=== PATIENT | female | born 1990 | race Hispanic/Latino ===

== ENCOUNTER 2017-10-28 20:30 | Emergency (ER) | payer OTHER ==
[2017-10-28 21:35] LABS: BASOPHILS % (AUTO) 1.2 % (0.0-5.0); EOSINOPHILS % (AUTO) 0.7 % (0.0-8.0); HEMATOCRIT 40.5 % (36-48); LYMPHOCYTES % (AUTO) 13.3 % (21.0-51.0); MEAN CORPUSCULAR HEMOGLOBIN 26.1 pg (27.0-33.0); MEAN CORPUSCULAR HGB CONC 33.7 g/dL (32.0-36.0); MEAN CORPUSCULAR VOLUME 77.4 fL (79-99); MONOCYTES % (AUTO) 5.7 % (3.0-13.0); NEUTROPHILS % (AUTO) 79.1 % (40.0-77.0); PLATELET COUNT (AUTO) 263 K/uL (130-400); RED BLOOD CELL COUNT(AUTO) 5.23 MIL/uL (4.00-5.50); RED CELL DISTRIBUTION WIDTH 14.8 % (11.0-15.5); WHITE BLOOD COUNT (AUTO) 9.4 K/uL (4.8-10.8)
[2017-10-28 21:53] LABS: CREATININE 0.7 mg/dL (0.5-1.5); POTASSIUM 3.4 mmol/L (3.5-5.1)
[2017-10-28 21:58] LABS: ALBUMIN 3.8 g/dL (3.5-5.0); BILIRUBIN,TOTAL 0.8 mg/dL (0.2-1.0); RAPID GROUP A STREP NEGATIVE (NEGATIVE); TOTAL PROTEIN, SERUM 8.3 g/dL (6.0-8.3)
[2017-10-28] MEDS ORDERED: POTASSIUM CHLORIDE 10% ELIXIR 20 MEQ/15 ML UDCUP ONE (22:12)
[2017-10-28] MEDS ORDERED: HYDROCODONE/ACETAMINOPHEN 10/325 MG TAB ONE (22:17)
[2017-10-28] MEDS ORDERED: CEFTRIAXONE SODIUM 1 GM ONE (22:22)
== END 2017-10-28 23:11 | disposition home or self-care (01) ==
LOC: EDH 20:30
DX: H65.01 Acute serous otitis media, right ear (principal); J02.9 Acute pharyngitis, unspecified; E16.2 Hypoglycemia, unspecified; C22.8 Malignant neoplasm of liver, primary, unspecified as to type; C25.9 Malignant neoplasm of pancreas, unspecified; Z98.890 Other specified postprocedural states
CPT/HCPCS: 36415; 80053; 85025; 87040; 87804 ×2; 87880; 96374; 99284; J0696

== ENCOUNTER 2019-01-30 12:41 | Day surgery (SDC) | payer OTHER ==
[2019-01-30] VITALS (13 sets, daily range): BP systolic 108–122; BP diastolic 61–77
[2019-01-30 13:21] LABS: BASOPHILS % (AUTO) 1.8 % (0.0-5.0); EOSINOPHILS % (AUTO) 1.3 % (0.0-8.0); HEMATOCRIT 25.6 % (36-48); LYMPHOCYTES % (AUTO) 32.6 % (21.0-51.0); MEAN CORPUSCULAR VOLUME 73.5 fL (79-99); MONOCYTES % (AUTO) 6.1 % (3.0-13.0); NEUTROPHILS % (AUTO) 58.2 % (40.0-77.0); PLATELET COUNT (AUTO) 186 K/uL (130-400); RED BLOOD CELL COUNT(AUTO) 3.48 MIL/uL (4.00-5.50); RED CELL DISTRIBUTION WIDTH 14.6 % (11.0-15.5); WHITE BLOOD COUNT (AUTO) 2.8 K/uL (4.8-10.8)
[2019-01-30 13:29] LABS: CREATININE 0.6 mg/dL (0.5-1.5); POTASSIUM 3.5 mmol/L (3.5-5.1)
[2019-01-30 13:33] LABS: ALBUMIN 3.8 g/dL (3.5-5.0); BILIRUBIN,TOTAL 0.4 mg/dL (0.2-1.0); TOTAL PROTEIN, SERUM 7.2 g/dL (6.0-8.3)
[2019-01-30] MEDS ORDERED: PROPOFOL 10 MG/ML 20ML VIAL IV ONE (13:34)
[2019-01-30] MEDS ORDERED: FENTANYL CITRATE PF 50 MCG/1 ML 2ML VIAL ONE (13:35)
[2019-01-30] MEDS ORDERED: MIDAZOLAM HCL 1 MG/ML 2ML VIAL ONE (13:35)
[2019-01-30] MEDS ORDERED: LIDOCAINE PF 2% 5ML ABBOJECT ONE ×2 (13:38→15:06)
[2019-01-30] MEDS ORDERED: DEXAMETHASONE SOD PHOSPHATE 10MG/ML 1ML VIAL ONE (13:38)
[2019-01-30] MEDS ORDERED: ONDANSETRON HCL 4 MG/2 ML VIAL ONE (13:38)
[2019-01-30] MEDS ORDERED: OXYTOCIN 10 USP UNITS/ML ONE (13:39)
[2019-01-30] MEDS ORDERED: METOCLOPRAMIDE 10 MG/2 ML VIAL ONE (14:00)
[2019-01-30 14:06] LABS: BASOPHILS % (MANUAL) 4 % (0-2); EOSINOPHILS % (MANUAL) 2 % (1-6); LYMPHOCYTES % (MANUAL) 26 % (22-44); MONOCYTES % (MANUAL) 6 % (2-9); SEGMENTED NEUTROPHILS % 62 % (40-70)
[2019-01-30 14:07] LABS: MAN.DIFF COMMENT-IMPRESSION MANUAL DIFFERENTIAL; PLATELET MORPHOLOGY COMMENT ADEQUATE
[2019-01-30] MEDS ORDERED: SODIUM CHLORIDE 0.9% 1000ML 1,000 ML IV ONE (14:08)
[2019-01-30] MEDS ORDERED: SUCCINYLCHOLINE 200MG/10ML SYR ONE (14:18)
[2019-01-30] MEDS ORDERED: MEPERIDINE-PF 25 MG/ML SYG ONE (15:54)
== END 2019-01-30 16:55 | disposition home or self-care (01) ==
LOC: EDH 12:41 → EDHIP 13:10 → DAH 13:10 → UNDOADMOB 13:10 → DAH 16:55
PROVIDERS: ATTEND Obstetrics & Gynecology
DX: N92.1 Excessive and frequent menstruation with irregular cycle (principal); N93.8 Other specified abnormal uterine and vaginal bleeding; D64.9 Anemia, unspecified; Z79.899 Other long term (current) drug therapy; Z98.890 Other specified postprocedural states
CPT/HCPCS: 36415; 58120; 80053; 82948 ×2; 85025; 86850; 86900; 86901; 86922; A4556; J0330; J1100; J2001 ×2; J2175; J2250; J2405; J2590; J2704; J2765; J3010; J7030 ×2

== ENCOUNTER 2019-05-20 22:48 | Emergency (ER) | payer OTHER ==
[2019-05-20] MEDS ORDERED: ACETAMINOPHEN 325 MG TAB ONE (23:17)
[2019-05-20] MEDS ORDERED: CLINDAMYCIN HCL 150 MG CAP ONE (23:17)
== END 2019-05-21 01:04 | disposition home or self-care (01) ==
LOC: EDH 22:48
DX: L03.211 Cellulitis of face (principal); Z85.05 Personal history of malignant neoplasm of liver; Z85.07 Personal history of malignant neoplasm of pancreas; Z85.858 Personal history of malignant neoplasm of other endocrine glands; Z98.890 Other specified postprocedural states

== ENCOUNTER 2020-06-13 07:22 | Day surgery (SDC) | payer OTHER ==
[2020-06-10 16:40] VITALS: BP 126/81
[2020-06-10 17:00] LABS: BASOPHILS % (AUTO) 0.8 % (0.0-5.0); EOSINOPHILS % (AUTO) 0.8 % (0.0-8.0); HEMATOCRIT 39.7 % (36-48); LYMPHOCYTES % (AUTO) 17.3 % (21.0-51.0); MEAN CORPUSCULAR HEMOGLOBIN 24.4 pg (27.0-33.0); MEAN CORPUSCULAR HGB CONC 31.2 g/dL (32.0-36.0); MONOCYTES % (AUTO) 6.8 % (3.0-13.0); NEUTROPHILS % (AUTO) 73.9 % (40.0-77.0); PLATELET COUNT (AUTO) 405 K/uL (130-400); RED BLOOD CELL COUNT(AUTO) 5.09 MIL/uL (4.00-5.50); RED CELL DISTRIBUTION WIDTH 17.2 % (11.0-15.5); WHITE BLOOD COUNT (AUTO) 10.9 K/uL (4.8-10.8)
[2020-06-10 17:08] LABS: CREATININE 0.9 mg/dL (0.5-1.5); POTASSIUM 4.3 mmol/L (3.5-5.1)
[2020-06-12 17:33] VITALS: BP 126/81
[~2020-06-13] VITALS: Ht 162.6 cm; Wt 84.8 kg
[2020-06-13] VITALS (22 sets, daily range): BP systolic 113–153; BP diastolic 64–90
[2020-06-13] MEDS: CEFAZOLIN SODIUM 1 GM VIAL IVP SCH ×2 (06:00→09:10)
[~2020-06-13 07:22] MED LIST: SODIUM CHLORIDE 0.9% 500ML 500 ML IV SCH
[2020-06-13] MEDS ORDERED: SODIUM CHLORIDE 0.9% 1000ML 1,000 ML IV ONE (07:32)
[2020-06-13] MEDS ORDERED: EMPA10TA PO (08:01)
[2020-06-13] MEDS ORDERED: ERGO500014 PO (08:01)
[2020-06-13] MEDS ORDERED: ESCI10TA54 PO (08:01)
[2020-06-13] MEDS ORDERED: BUPIVACAINE/PF 0.5% 30ML VIAL ONE (08:01)
[2020-06-13] MEDS ORDERED: ROCURONIUM 10MG/1ML SYR 10 MG/ML ML ONE ×3 (09:01→10:22)
[2020-06-13] MEDS ORDERED: FENTANYL CITRATE PF 50 MCG/1 ML 2ML VIAL ONE (09:01)
[2020-06-13] MEDS ORDERED: SUCCINYLCHOLINE 200MG/10ML SYR ONE (09:01)
[2020-06-13] MEDS ORDERED: PROPOFOL 10 MG/ML 20ML VIAL IV ONE (09:01)
[2020-06-13] MEDS ORDERED: LIDOCAINE PF 2% 5ML ABBOJECT ONE (09:01)
[2020-06-13] MEDS ORDERED: MIDAZOLAM HCL 1 MG/ML 2ML VIAL ONE (09:01)
[2020-06-13] MEDS ORDERED: DEXAMETHASONE SOD PHOSPHATE 10MG/ML 1ML VIAL ONE (09:01)
[2020-06-13] MEDS ORDERED: ONDANSETRON HCL 4 MG/2 ML VIAL ONE (09:01)
[2020-06-13] MEDS ORDERED: GLYCOPYRROLATE 1 MG/5 ML SYRINGE ONE (11:34)
[2020-06-13] MEDS ORDERED: NEOSTIGMINE 5MG/5ML SYR IV ONE (11:35)
[2020-06-13] MEDS ORDERED: MEPERIDINE-PF 25 MG/ML SYG ONE ×2 (12:11→12:32)
[2020-06-13] MEDS ORDERED: ACETAMINOPHEN EXTRA STRENGTH 500 MG TABLET ONE (13:50)
--- NOTE | 2020-06-13 14:00 | NUR ---
called md office to advised patient only had motrin for pain and patient was requesting other medication besides motrin, per gladys Doctor Evelin Nurse advised md and place order to pharmacy if okay.
== END 2020-06-13 14:05 | disposition home or self-care (01) ==
LOC: DAH 07:22
PROVIDERS: ATTEND Surgery
DX: K43.2 Incisional hernia without obstruction or gangrene (principal); K66.0 Peritoneal adhesions (postprocedural) (postinfection); Z85.07 Personal history of malignant neoplasm of pancreas; E66.01 Morbid (severe) obesity due to excess calories; Z79.899 Other long term (current) drug therapy
CPT/HCPCS: 49654; S2900; 36415; 80048; 82948; 85025; A4344; J0330; J0690; J1100; J2001; J2175; J2250; J2405; J2704; J2710; J3010; J3490; J7030; U0003